=== PATIENT | female | born 1955 | race Caucasian/White ===

== ENCOUNTER 2025-03-12 06:26 | Day surgery (SDC) | payer MEDICARE, OTHER, SELFPAY ==
[2025-03-12 07:32] LABS: Glucose - Point of Care 140 mg/dl (70-99)
== END 2025-03-12 09:25 | disposition home or self-care (01) ==
LOC: GI 06:26
PROVIDERS: ATTENDING PHYSICIAN Internal Medicine Gastroenterology; FAMILY PHYSICIAN Family Medicine
DX: Z12.11 Encounter for screening for malignant neoplasm of colon (principal); K64.9 Unspecified hemorrhoids; K62.89 Other specified diseases of anus and rectum; D12.0 Benign neoplasm of cecum; D12.3 Benign neoplasm of transverse colon; D12.5 Benign neoplasm of sigmoid colon; Z86.0100 Personal history of colon polyps, unspecified; Z80.0 Family history of malignant neoplasm of digestive organs
CPT/HCPCS: 45385; 45380; 45381; 82962; 88305